=== PATIENT | male | born 1980 | race Caucasian/White ===

== ENCOUNTER 2020-03-15 09:30 | Emergency (ER) | payer MEDICAID ==
[~2020-03-15] VITALS: Ht 180.3 cm; Wt 102.1 kg
--- NOTE | 2020-03-15 09:35 | NUR ---
dr londono at bedside for eval.
[2020-03-15 09:40] VITALS: BP 136/88
[2020-03-15] MEDS ORDERED: LORAZEPAM 1 MG TABLET ONE (09:40)
[2020-03-15] MEDS ORDERED: LORAZEPAM 1 MG TABLET PO ONE (10:00)
--- NOTE | 2020-03-15 10:16 | NUR ---
pt seen and examined by er provider. was medicated as ordered. pt denies si/hi. lives temporary at a hotel. discharge in stable condition.
== END 2020-03-15 10:19 | disposition home or self-care (01) ==
LOC: ER 09:32
DX: F41.9 Anxiety disorder, unspecified (principal); R00.0 Tachycardia, unspecified; Z59.0 Homelessness